=== PATIENT | male | born 2000 | race Caucasian/White ===

== ENCOUNTER → 2021-08-18 14:05 | Outpatient (CLI) | payer BC, SELFPAY ==
--- NOTE | ~2021-08-18 | XR_ITS ---
XR shoulder LT min 2V DATE: 08/18/2021 14:35 INDICATION: Left shoulder pain dating to 2019, playing baseball TECHNIQUE: 5 views COMPARISON: None FINDINGS: No fracture or dislocation, periosteal reaction or bone destruction or abnormal soft tissue calcification. IMPRESSION: Negative Reviewed, dictated and finalized at location A. IMPRESSION: Negative
--- NOTE | ~2021-08-18 | XR_ITS ---
XR elbow RT min 3V DATE: 08/18/2021 14:36 INDICATION: Right elbow pain posteriorly after fall in 1999 TECHNIQUE: 4 views COMPARISON: None FINDINGS: No fracture or dislocation or joint effusion. No periosteal reaction or bone destruction. IMPRESSION: Negative Reviewed, dictated and finalized at location A. IMPRESSION: Negative
== END ==
PROVIDERS: PCP Family Medicine; Visit Provider Family Medicine
DX: M25.512 Pain in left shoulder (principal); M25.521 Pain in right elbow
CPT/HCPCS: 73030; 73080